=== PATIENT | female | born 1945 | race Native Hawaiian/Other Pacific Islander ===

== ENCOUNTER 2016-03-01 05:08 | Inpatient (IN) | payer OTHER ==
[~2016-03-01] VITALS: Ht 170.2 cm; Wt 74.0 kg
[2016-03-01] VITALS (15 sets, daily range): BP systolic 109–174; BP diastolic 52–90; TEMP 97.6–98.3; Ht 170.2 cm; Wt 74.0 kg
[~2016-03-01 05:08] MED LIST: ALBU0.0813 IN; AMLO2.5T PO; CELEXA40 MG PO; FLUTMIS6 INH; GLIM4TAB PO; HYDRALAZINE50 MG PO; LYRICA50 MG PO; METO50TA27 PO; RIOMET PO; ROSU10TA PO; ZESTRIL40 MG OR
[2016-03-01 05:56] LABS: PLATELET COUNT 488 K/uL (152-353)
[2016-03-01 06:05] LABS: POTASSIUM 3.7 mmol/L (3.6-5.2)
[2016-03-01 06:10] LABS: PARTIAL THROMBOPLASTIN TIME 29.2 SECONDS (24.5-33.6)
[2016-03-01 06:19] LABS: SODIUM 105 mmol/L (136-145)
--- NOTE | 2016-03-01 09:15 | NUR ---
PATIENT ADMITTED TO ROOM 113 FROM ER. PATIENT IS LETHARGIC ON ARRIVAL AND RESPONDS WITH MUCH STIMULATION. ONCE AWAKE PATIENT IS ALERT AND AAPPEARS TO BE ORIENTED. ANSWERS QUESTIONS APPRIPRIATELY. ADMISSION ASSESSMENT COMPLETE AND HISTORY OBTAINED. PATIENT ORIENTED TO ROOM AND CALL SYSTEM. INSTRUCTED TO STAY IN BED AND CALL FOR ASSISTANCE IF NEEDED.
--- NOTE | 2016-03-01 10:00 | NUR ---
DISCUSSED PATIENT STATUS WITH DR. CRUZ AND DECISION WAS MADE TO TRANSFER PATIENT TO ICU. ORDERS RECEIVED AND CARRIED OUT.
--- NOTE | 2016-03-01 10:15 | NUR ---
PATIENT MOVED TO ICU 3 VIA BED. CONNECTED TO MONITORS. EXPLAINED PLAN OF CARE TO PATIENT. PATIENT STATES SHE IS BREATHING EASIER AT THIS TIME. NO COMPLAINTS OF PAIN. WILL CONTINUE TO MONITOR.
--- NOTE | 2016-03-01 11:15 | NUR ---
DR. CRUZ HERE TO SEE PATIENT. NEW ORDERS RECEIVED AND CARRIED OUT.
--- NOTE | 2016-03-01 12:30 | NUR ---
PATIENT RESTING WITH EYES CLOSED, RESPIRATIONS NONLABORED. NO SIGNS OF DISCOMFORT.
--- NOTE | 2016-03-01 15:00 | NUR ---
PATIENT TAKEN TO RADIOLOGY VIA WHEELCHAIR AND BROUGHT BACK TO ROOM, TOLERATED ACTIVITY WELL.
--- NOTE | 2016-03-01 16:00 | NUR ---
CT REPORT GIVEN TO DR. CRUZ, NEW ORDERS NOTED.
--- NOTE | 2016-03-01 18:30 | NUR ---
PATIENT DROWSY, AROUSED AND REPOSITIONED IN BED FOR SUPPER. PATIENT HAS NO COMPLAINTS AT THIS TIME.
--- NOTE | 2016-03-01 20:30 | NUR ---
RCD PT DOZING O2 AT 3L O2 SAT 97
--- NOTE | 2016-03-01 21:30 | NUR ---
HAD COUGHING SPELL UP IN CHAIR FOR SHORT 20 MIN BACK TO BED RESTING O2 SAT 95/97 O2 AT 3L
--- NOTE | 2016-03-01 23:30 | NUR ---
RESTING NO FURTHER COUGHING
[2016-03-02] VITALS (23 sets, daily range): BP systolic 91–152; BP diastolic 7–85; TEMP 97.1–98.1
--- NOTE | 2016-03-02 00:30 | NUR ---
PT RESTING, NO COUGHING NOTED. 98% 02
--- NOTE | 2016-03-02 05:00 | NUR ---
LABS DRAWN. Pt. AWAKE THINKING THAT IT'S 0800 OR 0900 READY FOR BREAKFAST.
[2016-03-02 05:09] LABS: PLATELET COUNT 507 K/uL (152-353)
[2016-03-02 05:52] LABS: POTASSIUM 3.5 mmol/L (3.6-5.2); SODIUM 120 mmol/L (136-145)
--- NOTE | 2016-03-02 07:00 | NUR ---
PT RESTING IN LOW FOWLERS WITH EYES CLOSED. REPORT FROM PM STAFF, HR IRREGULAR,RATE 102.
--- NOTE | 2016-03-02 08:00 | NUR ---
AM PRN INSULIN HELD.BS 217,PT WITH POOR APPETITE.
--- NOTE | 2016-03-02 09:00 | NUR ---
UNABLE TO SCAN NS WITH ROCEPHIN 1 GM. PT SITTING UP ON SIDE OF BED. FED SELF SM. AMT BREAKFAST. C/O BEING COLD.WRAPPED IN A BLANKET & EXTRA SOCKS PLACED ON PT.
--- NOTE | 2016-03-02 11:00 | NUR ---
DR CRUZ IN TO SEE PT. NEW ORDERS.
--- NOTE | 2016-03-02 11:20 | NUR ---
GEORGE D/C PER ORDER. PT ASSITED UP TO BSC PER RUTH TORRES. NO VOID AT THIS TIME.
--- NOTE | 2016-03-02 12:22 | NUR ---
PO AMARYL 4 MG PO HOME MED STARTED PER ORDER. INSULIN HELD. PT CONTINUES TO EAT VERY LITTLE. REPORTED TO DR CRUZ.
--- NOTE | 2016-03-02 14:18 | NUR ---
PT UP TOO BSC, VOID 250 ML CL YELLOW URINE.
--- NOTE | 2016-03-02 14:44 | NUR ---
LAB DRAW & TO LAB,PT RESTING WITH EYES LOSED. PT COUGHING AT INTERVALS REPORTED TO DR CRUZ.
[2016-03-02 14:57] LABS: POTASSIUM 2.8 mmol/L (3.6-5.2); SODIUM 122 mmol/L (136-145)
--- NOTE | 2016-03-02 15:10 | NUR ---
UNABLE TO SCAN NS 250 ML WITH ZITHROMAX. VERIFIED PT .
--- NOTE | 2016-03-02 15:30 | NUR ---
LABS TO DR CRUZ.
--- NOTE | 2016-03-02 16:31 | NUR ---
UNABLE TO SCAN NS 100 ML WITH MAG 3 GRAMS. PT VERIFIED.
--- NOTE | 2016-03-02 17:07 | NUR ---
PT WITHBS 271,METFORMIN 850 MG PO STARTED AP1965. PRN INSULIN HELD.
--- NOTE | 2016-03-02 18:00 | NUR ---
PT REFUSED TO EAT SUPPER,'I WILL LATER' PER PT. PT BACK TO SLEEP.HR 102. DENIES PAIN.
--- NOTE | 2016-03-02 20:00 | NUR ---
RECEIVED PT DOZING, AROUSES EASILY, CONVERSES FREELY AND APPROPRIATELY WITH NO COGNITIVE/NEURO DEFICITS OBSERVED. RESP REG AND MILDLY LABORED AT TIMES. O2/NC INTACT. RESP ASSESSED PT. HR IS LABILE WITH EXERTION. PT STATED SHE HAD SUFFERED A FALL AT HOME GOING INTO HER BATHROOM. NO INJURY ASSOCIATED WITH FALL. PT ASKED FOR DINNER TRAY, ATE PUDDING AND DRANK FLUIDS. DECREASED APPETITE NOTED.
[2016-03-02 21:40] LABS: POTASSIUM 3.2 mmol/L (3.6-5.2); SODIUM 125 mmol/L (136-145)
--- NOTE | 2016-03-02 23:53 | NUR ---
FSBS 297, 4 UNITS NOVOLOG PER BEDTIME DOSING GIVEN TO L UMBILICUS. PT FE WELL. PT ALSO RECEIVING SOLUMEDROL WITH POSSIBLE EFFECTS TO GLUCOSE LEVELS.
--- NOTE | 2016-03-02 23:55 | NUR ---
PT REQUIRES ASSISTANCE WITH OOB TRANSFERS AND TOILETING. PROFOUND GENERALIZED WEAKNESS OBSERVED. PT HAS EPISODES OF DEEP, HACKING COUGHING REQUIRING HER TO SIT UP ON BEDSIDE TO CATCH HER BREATH. TESSALON PERLES 200 MG GIVEN AT 2345. PT ASSISTED BACK TO BED WITH HOB ELEVATED FOR OPTIMAL RESP FUNCTION.
[2016-03-03] VITALS (24 sets, daily range): BP systolic 110–162; BP diastolic 43–85; TEMP 97–98.1
--- NOTE | 2016-03-03 03:15 | NUR ---
LAB IN TO DRAW CARDIACS, LILIANE RAMIREZ RN TO ME TO ASK LAB TO DRAW ALL LABS FOR DUE AT 0600 ALSO.
--- NOTE | 2016-03-03 05:21 | NUR ---
PT UP TO BSC VOIDED 350 ML DARK BROWN URINE. BECOMES PROFOUNDLY SOB ON EXERTION AND REQUIRES SEVERAL MINUTES TO RECOVER. PT BECOMES ANXIOUS AND STATES THAT, "THIS DIDN'T HAPPEN AT HOME."
[2016-03-03 05:44] LABS: PLATELET COUNT 566 K/uL (152-353)
[2016-03-03 06:01] LABS: POTASSIUM 3.3 mmol/L (3.6-5.2); SODIUM 126 mmol/L (136-145)
--- NOTE | 2016-03-03 12:51 | NUR ---
0900 Administered 6u Novolog insulin via Flexpen in Rt. arm SQ for a glucose of 234. Attempted x3 to scan at bedside & co-sign without success (Emma Hou LPN, Maryann Hawkins RN, and Jaimee Meza RN). Tolerated well.
--- NOTE | 2016-03-03 13:08 | NUR ---
1200 Administered 7 units of Novolog insulin SQ in Left arm for BS of 252. Was unable to cosign and scan insulin at bedside. As in 0730 dose, Emma Hou LPN witnessed insulin prior to administration. Ivan Hawkins RN and Ac Meza RN also tried to co-sign without difficulty. Notified pharmacy. Clarified with physician if pt to have salt on food tray. Dr. Javier would like pt to remain on low sodium diet with nurse to add small amount of salt to pt.'s food.
--- NOTE | 2016-03-03 16:13 | NUR ---
1613 Requesting cough meds at 1530. Pulled 2 Tessalon Leigha 100 mg tabs from [facility]. At bedside, pt. refused. Returned meds to [email or web address]. Pt began coughing. Pulled two additional Tessalon Leigha tabs from [facility] and administered to pt. Will continue to monitor.
--- NOTE | 2016-03-03 16:51 | NUR ---
1640 Collected urine sample for urinalysis. Labeled, date, and time applied to sample. Sent to lab in biohazard bag.
--- NOTE | 2016-03-03 20:12 | NUR ---
[address] Javier to report change in EKG from normal sinus rhythm to atrial fibrillation. No new orders. Will continue to monitor and report any changes.
--- NOTE | 2016-03-03 21:00 | NUR ---
ASSISTED TO BS COMMODE AND BACK IN BED. PT. COMPLAINING OF BEING COLD. HEAT TURNED UP.
--- NOTE | 2016-03-03 22:10 | NUR ---
GLULCOSE 210
--- NOTE | 2016-03-03 23:00 | NUR ---
ASSIST PT TO BS COMMODE TO VOID AND BACK TO BED.
[2016-03-04] VITALS (20 sets, daily range): BP systolic 130–165; BP diastolic 53–96; TEMP 97–98.4
[2016-03-04 03:50] LABS: PLATELET COUNT 521 K/uL (152-353)
[2016-03-04 04:08] LABS: POTASSIUM 3.4 mmol/L (3.6-5.2); SODIUM 125 mmol/L (136-145)
--- NOTE | 2016-03-04 06:00 | NUR ---
SITTIING UP ON SIDE OF BED. NO COMPLAINTS OR DISCOMFORT.
--- NOTE | 2016-03-04 08:00 | NUR ---
AM ASSESSMENT COMPLETE
--- NOTE | 2016-03-04 10:35 | NUR ---
BREATHING GIVEN PER RESP TH
--- NOTE | 2016-03-04 12:17 | NUR ---
DR JI AT BS
--- NOTE | 2016-03-04 12:32 | NUR ---
DR. JI HERE TO SEE PT.
--- NOTE | 2016-03-04 12:58 | NUR ---
IRREGULAR HR AT TIMES, W/PVC'S NOTED
--- NOTE | 2016-03-04 15:45 | NUR ---
BR TX GIVEN PER RT
--- NOTE | 2016-03-04 17:59 | NUR ---
PT SITTING ON SIDE OF BED. NAD NOTED AT THIS TIME.
--- NOTE | 2016-03-04 19:50 | NUR ---
RCD PT SLEEPY BUT EASILY ROUSED. MONITOR SR O2 AT 3L NC.IV PATENT.
--- NOTE | 2016-03-04 21:30 | NUR ---
UP ON COMMODE VOIDED 300CC SITTING ON SIDE OF BED ATE APPLE TOLERATED O2 AT 3L
--- NOTE | 2016-03-04 23:27 | NUR ---
RESP TX GIVEN FE WELL MONITOR SR
[2016-03-05] VITALS (14 sets, daily range): BP systolic 112–181; BP diastolic 61–94; TEMP 97.5–98
--- NOTE | 2016-03-05 01:13 | NUR ---
UP TO COMMODE VOIDED BACK TO BED NO C/O AT PRESENT MONITOR SR 68 O2 AT 3L . RESTING
--- NOTE | 2016-03-05 03:00 | NUR ---
RESTING WITH EYES CLOSED
--- NOTE | 2016-03-05 04:48 | NUR ---
BLOOD DRAWN X1 AWAKE ALERT RESP EVEN UNLABORED.MONITOR REMAINS ST 102.
[2016-03-05 05:11] LABS: PLATELET COUNT 492 K/uL (152-353)
[2016-03-05 05:28] LABS: POTASSIUM 3.3 mmol/L (3.6-5.2); SODIUM 125 mmol/L (136-145)
--- NOTE | 2016-03-05 06:15 | NUR ---
SLEEPING EASILY ROUSED O2 SAT 94.
--- NOTE | 2016-03-05 07:45 | NUR ---
ASSISTED PT UP TO BSC, GAIT UNSTEADY
--- NOTE | 2016-03-05 12:03 | NUR ---
PT SITTING ON EDGE OF BED EATING.
--- NOTE | 2016-03-05 14:00 | NUR ---
ASSITED PT UP TO BSC. PT ALERT AT THIS TIME
--- NOTE | 2016-03-05 15:50 | NUR ---
THADDEUS POWELL RN TALKING WITH PT.
--- NOTE | 2016-03-05 15:54 | NUR ---
PT REFUSED BATH
--- NOTE | 2016-03-05 17:02 | NUR ---
VANC TROUGH DRAWN AT 1609 AND TAKEN TO LAB, HAVE NOT RECIEVED RESULTS AT THIS TIME
--- NOTE | 2016-03-05 17:20 | NUR ---
INFORMED BY LAB THAT VANC TROUGH WAS STILL RUNNING
--- NOTE | 2016-03-05 17:40 | NUR ---
VANC TROUGH PRINTED
--- NOTE | 2016-03-05 18:45 | NUR ---
TRANSFERRED TO 1116. ASSITED PT TO BSC, TOLERATED WELL
--- NOTE | 2016-03-05 19:20 | NUR ---
REPORT GIVEN MAXIMINO SCRUGGS RN
--- NOTE | 2016-03-05 23:10 | NUR ---
DUE TO CLERICAL DELAY IN TRANSFERRING PT FROM ICU TO MED SURG RM 1116 PTS MEDICATIONS WERE ALSO DELAYED. [facility] ARE PROCESSING TRANSFER INCREMENTALLY. PT RESTING, WILL CONT TO OBSERVE. PT REQUIRES MIN ASSIST X1 WITH TRANSFERS AND TOILETING. DENIES DIFFICULTY WITH ELIMINATION.
[2016-03-06] VITALS: BP 148/77; TEMP 98.1
[2016-03-06 04:00] VITALS: BP 150/76; TEMP 98.1
--- NOTE | 2016-03-06 04:50 | NUR ---
IV SITE CARE PROVIDED, MOUTH CARE ALSO PROVIDED AND LIPS MOISTURIZED WITH PETROLEUM JELLY; A REDDENED AREA OBSERVED TO RIGHT UPPER EXTENDED UPWARD TO RIGHT NARE.
[2016-03-06 05:47] LABS: PLATELET COUNT 478 K/uL (152-353)
[2016-03-06 05:57] LABS: POTASSIUM 2.7 mmol/L (3.6-5.2); SODIUM 126 mmol/L (136-145)
--- NOTE | 2016-03-06 06:15 | NUR ---
ZOSYN WILL NOT SCAN. CONFLICT AT 0000 AND 0600.
[2016-03-06 08:21] VITALS: BP 153/68; TEMP 98.2
--- NOTE | 2016-03-06 09:25 | NUR ---
Pt. C/O FEELING LIKE HER HEART IS BEATING FAST. DR. JI NOTIFIED. Pt. STATES I TAKE MY METOPROLOL AT HOME AND IT STOPS IN ABOUT 30 MINS.
--- NOTE | 2016-03-06 10:10 | NUR ---
HEART RATE DECREASED TO 80's.
[2016-03-06 12:00] VITALS: BP 163/74; TEMP 98.7
--- NOTE | 2016-03-06 13:32 | NUR ---
MEDICATION GIVEN. Pt. PLACED ON TELE HR 148.
[2016-03-06 16:00] VITALS: BP 104/63; TEMP 98.5
--- NOTE | 2016-03-06 16:27 | NUR ---
Pt. CALLED TO [facility] ASK CAN SOME COME HELP ME UP. UPON ARRIVAL Pt. SITTING ON FLOOR BESIDE BED. Pt. STATES I JUST SLIPPED OFF MY BED. DENIES AND INJURIES NO INJURIES OBSERVED. DR. JI NOTIFIED VIA CARYN ROSEN RN.
[2016-03-06 21:23] VITALS: BP 169/71; TEMP 98.1
[2016-03-07 00:10] VITALS: BP 161/97; TEMP 98.2
[2016-03-07 04:00] VITALS: BP 161/81; TEMP 97.6
[2016-03-07 05:20] LABS: PLATELET COUNT 425 K/uL (152-353)
[2016-03-07 05:27] LABS: POTASSIUM 2.8 mmol/L (3.6-5.2); SODIUM 124 mmol/L (136-145)
[2016-03-07 08:08] VITALS: BP 177/82; TEMP 98.3
[2016-03-07 12:02] VITALS: BP 155/86; TEMP 98.2
[2016-03-07 16:00] VITALS: BP 154/74; TEMP 97.8
[2016-03-07 20:24] VITALS: BP 162/72; TEMP 98.2
[2016-03-08 00:07] VITALS: BP 190/91; TEMP 99.3
[2016-03-08 05:10] LABS: PLATELET COUNT 366 K/uL (152-353)
[2016-03-08 05:25] VITALS: BP 149/79; TEMP 97.9
[2016-03-08 05:39] LABS: SODIUM 125 mmol/L (136-145)
[2016-03-08 05:51] LABS: POTASSIUM 2.4 mmol/L (3.6-5.2)
[2016-03-08 08:00] VITALS: BP 185/85; TEMP 98.3
--- NOTE | 2016-03-08 08:25 | NUR ---
UPON ARRIVAL TO PT'S ROOM PT'S IV OUT. SITE CARE DONE.
[2016-03-08 12:00] VITALS: BP 185/75; TEMP 98.1
[2016-03-08 16:00] VITALS: BP 155/76; TEMP 98
[2016-03-08 19:02] LABS: POTASSIUM 3.2 mmol/L (3.6-5.2); SODIUM 127 mmol/L (136-145)
[2016-03-08 20:13] VITALS: BP 148/61; TEMP 98.1
[2016-03-09 00:46] VITALS: BP 162/60; TEMP 98.9
[2016-03-09 04:00] VITALS: BP 154/59; TEMP 98.1
[2016-03-09 08:00] VITALS: BP 166/74; TEMP 98
[2016-03-09 12:00] VITALS: BP 156/50; TEMP 98.7
[2016-03-09 13:32] LABS: PLATELET COUNT 338 K/uL (152-353)
[2016-03-09 14:06] LABS: POTASSIUM 2.9 mmol/L (3.6-5.2); SODIUM 125 mmol/L (136-145)
--- NOTE | 2016-03-09 15:04 | NUR ---
0830-DANNIELLE STATES TO LEAVE IV OUT UNTIL DR. JI SEES PT PT MAY BE DISCHARGED TODAY.
--- NOTE | 2016-03-09 15:38 | NUR ---
1425-ORDERS RECEIVED TO RESTART PT'S IV SO SHE CAN RECEIVED MAGNESIUM AND POTASSIUM IV.
[2016-03-09 16:00] VITALS: BP 185/50; TEMP 98.7
[2016-03-09 20:14] VITALS: BP 143/83; TEMP 97.9
[2016-03-10 00:28] VITALS: BP 140/70; TEMP 98
[2016-03-10 05:43] VITALS: BP 141/72; TEMP 98.2
[2016-03-10 06:45] LABS: PLATELET COUNT 333 K/uL (152-353)
[2016-03-10 07:07] LABS: POTASSIUM 3.5 mmol/L (3.6-5.2); SODIUM 122 mmol/L (136-145)
[2016-03-10 08:00] VITALS: BP 194/94; TEMP 98.3
[2016-03-10 11:36] VITALS: BP 125/76; TEMP 98
--- NOTE | 2016-03-10 13:47 | NUR ---
IV SITE D/C'D WITH TIP INTACT AND SITE CARE DONE. D/C INSTRUCTIONS GIVEN TO PT AND FAMILY AND BOTH VERBALIZE UNDERSTANDING. AWAITING [facility] WITH [employer] TO BRING PT'S PORTABLE O2 TANK.
--- NOTE | 2016-03-10 14:13 | NUR ---
PT OUT VIA W/C PER PCT WITH NAD. PT TO FOLLOW [facility] TO [employer]URNITURE [employer]ISH[employer] TO C[employer]LET W[employer]ER OTHER O2 SUPPLIES
== END 2016-03-10 14:15 | disposition home or self-care (01) | DRG 190 ==
LOC: ED 05:08 → MED/SURG 07:10 → ICU 10:25 → MED/SURG 03-05 18:30
PROVIDERS: Emergency Medicine; Internal Medicine; ADMIT Emergency Medicine
DX: J44.1 Chronic obstructive pulmonary disease with (acute) exacerbation (principal); J18.8 Other pneumonia, unspecified organism; E87.1 Hypo-osmolality and hyponatremia; M62.82 Rhabdomyolysis; E87.4 Mixed disorder of acid-base balance; D50.8 Other iron deficiency anemias; E11.65 Type 2 diabetes mellitus with hyperglycemia; R09.02 Hypoxemia; E88.09 Other disorders of plasma-protein metabolism, not elsewhere classified; D47.3 Essential (hemorrhagic) thrombocythemia; J43.9 Emphysema, unspecified; E87.6 Hypokalemia; E83.42 Hypomagnesemia
CPT/HCPCS: 36415; 36600; 51702; 80048; 80053; 80202; 80301; 81000; 82550; 82553; 82570; 82805; 82948; 82962; 83735; 83880; 83935; 84100; 84295; 84300; 84484; 85027; 85610; 85730; 87040; 87278; 87804; 93005; 94640; 94664; 94760; 96365; 96372; 96375; 99284; G0479; J0696; J1100; J1650; J1940; J2060; J2920; J2930; J3370; J3475; J3480; J3490; Q9963

== ENCOUNTER 2017-03-30 15:46 | Outpatient (CLI) | payer OTHER | END 2017-03-30 15:49 | disposition short-term general hospital (02) | LOC: AMB 15:46 | DX: R11.2 Nausea with vomiting, unspecified (principal); R07.89 Other chest pain; R53.1 Weakness | CPT/HCPCS: A0425; A0427 ==

== ENCOUNTER 2017-03-30 16:01 | Emergency (ER) | payer OTHER ==
[~2017-03-30] VITALS: Ht 162.6 cm; Wt 54.4 kg
[2017-03-30 15:55] VITALS: BP 83/30
[2017-03-30 16:16] LABS: PLATELET COUNT 354 K/uL (152-353)
[2017-03-30 16:23] LABS: POTASSIUM 3.7 mmol/L (3.6-5.2); SODIUM 125 mmol/L (136-145)
[2017-03-30 16:33] LABS: PARTIAL THROMBOPLASTIN TIME 23.4 SECONDS (24.5-33.6)
== END 2017-03-30 19:19 | disposition short-term general hospital (02) ==
LOC: ED 16:01
DX: I21.19 ST elevation (STEMI) myocardial infarction involving other coronary artery of inferior wall (principal); R00.1 Bradycardia, unspecified; I95.89 Other hypotension; I48.91 Unspecified atrial fibrillation; I48.92 Unspecified atrial flutter
CPT/HCPCS: 36415; 36600; 80053; 82550; 82805; 84484; 85027; 85379; 85610; 85730; 93005; 96361; 96365; 96372; 96375; 99285; J1265; J1650; J1815; J2270

== ENCOUNTER 2017-03-30 19:30 | Outpatient (CLI) | payer OTHER | END 2017-03-30 20:05 | disposition short-term general hospital (02) | LOC: AMB 19:30 | DX: I21.19 ST elevation (STEMI) myocardial infarction involving other coronary artery of inferior wall (principal); R00.1 Bradycardia, unspecified; I95.89 Other hypotension; I48.91 Unspecified atrial fibrillation; I48.92 Unspecified atrial flutter | CPT/HCPCS: A0425; A0427 ==

== ENCOUNTER 2017-05-18 18:48 | Outpatient (CLI) | payer OTHER ==
[2017-05-18] MEDS ORDERED: CLOP75TA2 PO (18:57)
[2017-05-18] MEDS ORDERED: METFORMIN HYDR850 MG PO (18:57)
[2017-05-18] MEDS ORDERED: NITR0.4S2 SL (18:58)
[2017-05-18] MEDS ORDERED: AMLODIPINE BESYLATE PO (18:59)
[2017-05-18] MEDS ORDERED: CELEXA40 MG PO (18:59)
[2017-05-18] MEDS ORDERED: ASPIRIN 81 LOW81 MG PO (19:01)
[2017-05-18] MEDS ORDERED: ZESTRIL40 MG OR (19:01)
[2017-05-18] MEDS ORDERED: LOPRESSOR100 MG PO (19:01)
[2017-05-18] MEDS ORDERED: CRESTOR20 MG PO (19:02)
[2017-05-18] MEDS ORDERED: DIVA250T2 PO (19:02)
[2017-05-18] MEDS ORDERED: GLIM4TAB PO (19:03)
[2017-05-18] MEDS ORDERED: ELIQUIS5 MG PO (19:04)
== END 2017-05-18 18:51 | disposition short-term general hospital (02) ==
LOC: AMB 18:48
DX: R07.89 Other chest pain (principal)
CPT/HCPCS: A0425; A0427

== ENCOUNTER 2017-05-18 18:53 | Emergency (ER) | payer OTHER ==
[~2017-05-18] VITALS: Ht 160 cm; Wt 2.4 kg
[2017-05-18] MEDS ORDERED: CLOP75TA2 PO (18:57)
[2017-05-18] MEDS ORDERED: METFORMIN HYDR850 MG PO (18:57)
[2017-05-18] MEDS ORDERED: NITR0.4S2 SL (18:58)
[2017-05-18] MEDS ORDERED: AMLODIPINE BESYLATE PO (18:59)
[2017-05-18] MEDS ORDERED: CELEXA40 MG PO (18:59)
[2017-05-18] MEDS ORDERED: ZESTRIL40 MG OR (19:01)
[2017-05-18] MEDS ORDERED: ASPIRIN 81 LOW81 MG PO (19:01)
[2017-05-18] MEDS ORDERED: LOPRESSOR100 MG PO (19:01)
[2017-05-18] MEDS ORDERED: CRESTOR20 MG PO (19:02)
[2017-05-18] MEDS ORDERED: DIVA250T2 PO (19:02)
[2017-05-18] MEDS ORDERED: GLIM4TAB PO (19:03)
[2017-05-18] MEDS ORDERED: ELIQUIS5 MG PO (19:04)
[2017-05-18 19:10] LABS: PLATELET COUNT 297 K/uL (152-353)
[2017-05-18 19:40] LABS: POTASSIUM 3.5 mmol/L (3.6-5.2)
[2017-05-18 19:44] LABS: PARTIAL THROMBOPLASTIN TIME 25.5 SECONDS (24.5-33.6)
[2017-05-18 19:54] VITALS: BP 115/68; TEMP 97.2
== END 2017-05-18 19:54 | disposition short-term general hospital (02) ==
LOC: ED 18:53
PROVIDERS: Specialist
DX: I25.9 Chronic ischemic heart disease, unspecified (principal); I48.91 Unspecified atrial fibrillation; R06.02 Shortness of breath
CPT/HCPCS: 36415; 80053; 82550; 83880; 84484; 85027; 85379; 85610; 85730; 93005; 96360; 96365; 96374; 96375; 99285; J2270; J2405

== ENCOUNTER 2017-05-18 19:54 | Outpatient (CLI) | payer OTHER ==
[~2017-05-18 19:54] MED LIST changes: +AMLODIPINE BESYLATE PO; +ASPIRIN 81 LOW81 MG PO; +CLOP75TA2 PO; +CRESTOR20 MG PO; +DIVA250T2 PO; +ELIQUIS5 MG PO; +LOPRESSOR100 MG PO; +METFORMIN HYDR850 MG PO; +NITR0.4S2 SL
== END 2017-05-18 20:22 | disposition short-term general hospital (02) ==
LOC: AMB 19:54
DX: I25.9 Chronic ischemic heart disease, unspecified (principal); I48.91 Unspecified atrial fibrillation; R06.02 Shortness of breath
CPT/HCPCS: A0425; A0427